=== PATIENT | male | born 1950 | race Asian ===

== ENCOUNTER 2016-11-21 07:50 | Inpatient (IN) | payer OTHER ==
[2016-11-21] MEDS ORDERED: ONDANSETRON 4 MG/2 ML VIAL IVP ONE (08:47)
[2016-11-21] MEDS ORDERED: HYDROmorphONE/DILAUDID 1 MG/ML SYR IVP ONE (08:47)
--- NOTE | 2016-11-21 08:47 | EDPHY ---
H & P Time Seen by Provider: 11/21/16 08:37 HPI/ROS: CHIEF COMPLAINT: Abdominal pain HISTORY OF PRESENT ILLNESS: 65 year old male with history of non-Hodgkin lymphoma and prior small bowel obstruction with a chief complaint of abdominal pain. The abdominal discomfort began as bloating, but yesterday he developed sharp pains throughout his abdomen. The pain is moderate and generalized. Associated with nausea, but no vomiting. He states he was able to eat and drink yesterday, and his last bowel movement was yesterday morning. He denies fever, chills, chest pain, shortness of breath, or other associated symptoms. REVIEW OF SYSTEMS: Constitutional: No fever, no chills Eyes: No visual changes ENT: No sore throat Respiratory: No cough, no shortness of breath Cardiac: No chest pain Genitourinary: No hematuria, no dysuria Musculoskeletal: No leg pain or swelling Skin: No rash Neurological: No headache, no numbness, no weakness Psychiatric: No depression Past Medical/Surgical History: 1. History of non-Hodgkin lymphoma 2. Hypertension 3. History of prostate cancer 4. Small bowel obstruction / resection 5. History of atrial fibrillation 6. Small bowel ulcer with perforation Social History: at bedside. Oncologist: Dr. Vazquez. GI: Dr. Hearn. Smoking Status: Never smoked Physical Exam: General Appearance: Alert, pleasant Eyes: Pupils equal and round, no conjunctival pallor or injection ENT, Mouth: Mucous membranes moist Neck: Normal inspection Respiratory: Lungs are clear to auscultation Cardiovascular: Regular rate and rhythm Gastrointestinal: Distended, suprapubic and right lower quadrant tenderness, decreased bowel sounds Neurological: A&O, nonfocal, normal gait Skin: Warm and dry, no rash Extremities: Nontender, no pedal edema Psychiatric: Mood and affect normal Constitutional: Initial Vital Signs Temperature (C) 37.9 C 11/21/16 07:59 Heart Rate 87 11/21/16 07:59 Respiratory Rate 18 11/21/16 07:59 Blood Pressure 139/94 H 11/21/16 07:59 O2 Sat (%) 98 11/21/16 07:59 O2 Delivery Mode Room Air Allergies/Adverse Reactions: Penicillins Allergy (Severe, Verified 11/21/16 07:57) Swelling/neck,face,throat Home Medications: Medication Instructions Recorded Enalapril Maleate [Vasotec 20 MG 40 mg PO HS 10/21/15 (*)] Hydrochlorothiazide [HCTZ (*)] 12.5 mg PO DAILY 10/21/15 Colchicine [Colchicine (*)] 0.6 mg PO DAILY PRN #0 ea 01/03/16 Diltiazem Xr [Dilacor Xr] 240 mg PO DAILY #0 cap 01/03/16 Melatonin [Melatonin 3 MG (*)] 6 mg PO HS PRN #0 tab 01/03/16 Metoprolol Tartrate [Lopressor 25 25 mg PO BID #0 tab 01/03/16 mg (*)] Aspirin [Aspirin 325 mg (*)] 325 mg PO HS 11/21/16 Cetirizine [ZyrTEC 10 mg (*)] 10 mg PO HS PRN 11/21/16 Omeprazole [Prilosec 20 mg] 20 mg PO DAILY 11/21/16 Propafenone HCl Sr [Rythmol Sr 225 mg PO DAILY PRN 11/21/16 225mg (*)] Medical Decision Making - Diagnostics Imaging Results: Imaging Impressions Abdomen CT 11/21/16 08:48 Impression: 1. Acute appendicitis, associated with an adjacent inflamed short segment of ileum 2. Stable pancreatic head cystic lesion, likely a peripheral duct IMPT. Consider follow-up CT in one year. Results called and discussed with HIRAL FERRERA, at 11/21/2016 10:01 General information for patients regarding this examination can be found at [email or web address]. If you have questions or comments about this report, please contact me at (hospital) or [phone] (cell). Imaging: Discussed imaging studies w/ process helper Radiologist ED Course/Re-evaluation: Clinical presentation concerning for acute bowel obstruction and possibly for acute appendicitis, given right lower quadrant tenderness. CT scan of the abdomen pelvis with IV contrast ordered. Administered 4mg IV Zofran and 0.5mg IV Dilaudid for symptom relief. 10:[address] Araujo, radiologist. CT shows appendicitis. Administered Levofloxacin and Flagyl due to severe penicillin allergy. Plan to admit for appendicitis. 10:[address] Frost's PA. Dr. Moser accepts admission. 10:23 Reassessed patient. Discussed plan for admission. Informed him and his of pancreatic cyst seen on CT. They are now aware of this, and will plan for follow-up CT in one year. Differential Diagnosis: Differential diagnosis includes though it is not limited to appendicitis, cholecystitis, diverticulitis, pyelonephritis, bowel perforation, small bowel obstruction. - Data Points Laboratory Results: Laboratory Results 11/21/16 08:39 11/21/16 08:39 11/21/16 11/21/16 08:39 08:39 WBC 14.11 10^3/uL H 10^3/uL (3.80-9.50) RBC 5.87 10^6/uL 10^6/uL (4.40-6.38) Hgb 16.7 g/dL g/dL (13.7-17.5) Hct 50.1 % % (40.0-51.0) MCV 85.3 fL fL (81.5-99.8) MCH 28.4 pg pg (27.9-34.1) MCHC 33.3 g/dL g/dL (32.4-36.7) RDW 13.5 % % (11.5-15.2) Plt Count 268 10^3/uL 10^3/uL (150-400) MPV 9.2 fL fL (8.7-11.7) Neut % (Auto) 85.7 % H % (39.3-74.2) Lymph % (Auto) 7.3 % L % (15.0-45.0) [place] % (Auto) 5.5 % % (4.5-13.0) Eos % (Auto) 0.6 % % (0.6-7.6) Baso % (Auto) 0.3 % % (0.3-1.7) Nucleat RBC Rel Count 0.0 % % (0.0-0.2) Absolute Neuts (auto) 12.09 10^3/uL H 10^3/uL (1.70-6.50) Absolute Lymphs (auto) 1.03 10^3/uL 10^3/uL (1.00-3.00) Absolute Monos (auto) 0.78 10^3/uL 10^3/uL (0.30-0.80) Absolute Eos (auto) 0.08 10^3/uL 10^3/uL (0.03-0.40) Absolute Basos (auto) 0.04 10^3/uL 10^3/uL (0.02-0.10) Absolute Nucleated RBC 0.00 10^3/uL 10^3/uL (0-0.01) Immature Gran % 0.6 % % (0.0-1.1) Immature Gran # 0.09 10^3/uL 10^3/uL (0.00-0.10) Sodium 144 mEq/L mEq/L (134-144) Potassium 4.1 mEq/L mEq/L (3.5-5.2) Chloride 106 mEq/L mEq/L (97-110) Carbon Dioxide 22 mEq/l mEq/l (22-31) Anion Gap 16 mEq/L mEq/L (8-16) BUN 20 mg/dL mg/dL (7-23) Creatinine 0.9 mg/dL mg/dL (0.7-1.3) Estimated GFR > 60 Glucose 108 mg/dL H mg/dL (70-100) Calcium 9.7 mg/dL mg/dL (8.5-10.4) Total Bilirubin 1.2 mg/dL mg/dL (0.1-1.4) Conjugated Bilirubin 0.3 mg/dL mg/dL (0.0-0.5) Unconjugated Bilirubin 0.9 mg/dL mg/dL (0.0-1.1) AST 38 IU/L IU/L (17-59) ALT 50 IU/L IU/L (21-72) Alkaline Phosphatase 66 IU/L IU/L (38-126) Total Protein 6.9 g/dL g/dL (6.3-8.2) Albumin 4.5 g/dL g/dL (3.5-5.0) Lipase 135.0 IU/L IU/L (23-300) Medications Given: Discontinued Medications Hydromorphone HCl (Dilaudid) 0.5 mg IVP EDNOW ONE Stop: 11/21/16 08:48 Last Admin: 11/21/16 09:00 Dose: 0.5 mg Sodium Chloride (Ns) 1,000 mls @ 0 mls/hr IV ONCE ONE; Wide Open PRN Reason: Protocol Stop: 11/21/16 08:49 Last Admin: 11/21/16 08:50 Dose: 1,000 mls Levofloxacin/Dextrose (Levaquin 750 Mg (Premix)) 150 mls @ 100 mls/hr IV EDNOW ONE PRN Reason: Protocol Stop: 11/21/16 11:43 Last Admin: 11/21/16 10:50 Dose: 150 mls Metronidazole/Sodium Chloride (Flagyl 500 Mg (Premix)) 100 mls @ 100 mls/hr IV EDNOW ONE PRN Reason: Protocol Stop: 11/21/16 11:14 Last Admin: 11/21/16 11:44 Dose: 100 mls Lactated Ringer's (Lr) 1,000 mls @ 0 mls/hr IV ONCE ONE PRN Reason: Per Protocol Stop: 11/21/16 13:00 Last Admin: 11/21/16 13:18 Dose: 1,000 mls Ondansetron HCl (Zofran) 4 mg IVP EDNOW ONE Stop: 11/21/16 08:48 Last Admin: 11/21/16 09:00 Dose: 4 mg Departure - Departure Disposition: [facility] Acute Clinical Impression: Acute appendicitis Qualifiers: Acute appendicitis type: with localized peritonitis Qualified Code(s): K35.3 - Acute appendicitis with localized peritonitis Condition: Good Report Scribed for: Hrial Ferrera Report Scribed by: Aubree Brown Date of Report: 11/21/16 Time of Report: 09:38 Physician Review and Approval Statement: 11/21/16 09:38 Portions of this note were transcribed by a nuclear medical technologist. I personally performed a history, physical exam, medical decision making, and confirmed accuracy of information the transcribed note.
[2016-11-21] MEDS ORDERED: NS 1,000 ML IV ONE (08:48)
[2016-11-21 08:53] LABS: % IMMATURE GRANULYOCYTES 0.6 % (0.0-1.1); ABSOLUTE IMMATURE GRANULOCYTES 0.09 10^3/uL (0.00-0.10); ADD DIFF? NO; ADD MORPH? NO; ADD SCAN? NO; ATYPICAL LYMPHOCYTE FLAG 0 (0-99); FRAGMENT RBC FLAG 0 (0-99); HEMATOCRIT 50.1 % (40.0-51.0); HEMOGLOBIN 16.7 g/dL (13.7-17.5); LEFT SHIFT FLG 10 (0-99); LIPEMIA HEMOLYSIS FLAG 80 (0-99); MEAN CELL HEMOGLOBIN 28.4 pg (27.9-34.1); MEAN CELL HEMOGLOBIN CONCENTR. 33.3 g/dL (32.4-36.7); MEAN CELL VOLUME 85.3 fL (81.5-99.8); MEAN PLATELET VOLUME 9.2 fL (8.7-11.7); PLATELET CLUMPS FLAG 20 (0-99); PLATELET COUNT 268 10^3/uL (150-400); RED BLOOD CELL COUNT 5.87 10^6/uL (4.40-6.38); RED CELL DISTRIBUTION WIDTH 13.5 % (11.5-15.2)
[2016-11-21 09:13] LABS: ALANINE AMINOTRANSFERASE 50 IU/L (21-72); ALBUMIN 4.5 g/dL (3.5-5.0); ALKALINE PHOSPHATASE 66 IU/L (38-126); ANION GAP 16 mEq/L (8-16); ASPARTATE AMINOTRANSFERASE 38 IU/L (17-59); BILIRUBIN,TOTAL 1.2 mg/dL (0.1-1.4); BILIRUBIN-CONJUGATED 0.3 mg/dL (0.0-0.5); BILIRUBIN-UNCONJUGATED 0.9 mg/dL (0.0-1.1); CALCIUM 9.7 mg/dL (8.5-10.4); CARBON DIOXIDE 22 mEq/l (22-31); CHLORIDE 106 mEq/L (97-110); CREATININE 0.9 mg/dL (0.7-1.3); GLOMERULAR FILTRATION RATE > 60; GLUCOSE 108 mg/dL (70-100); POTASSIUM 4.1 mEq/L (3.5-5.2); SODIUM 144 mEq/L (134-144); TOTAL PROTEIN 6.9 g/dL (6.3-8.2)
[2016-11-21] MEDS ORDERED: IOPAMIDOL (ISOVUE-300) 100 ML BTL ONE (09:28)
[2016-11-21] MEDS ORDERED: HYDROmorphONE/DILAUDID 1 MG/ML SYR IVP PRN ×2 (11:04→16:20)
--- NOTE | 2016-11-21 11:34 | GHP ---
[f rep st] PREOP HISTORY AND PHYSICAL DATE OF ADMISSION: 11/21/2016 CHIEF COMPLAINT: Abdominal pain. HISTORY OF PRESENT ILLNESS: The patient is a 65-year-old man who developed abdominal pain 3 days ag o. It started out as diffuse discomfort and over the past 3 days, has become more localized in the right lower quadrant. The pain is constant. He also developed nausea this morning. No fevers. Of note, he has had a history of small bowel obstructions, requiring small bowel resections, most rece ntly, in December 2015. He reports decreased appetite and the last time he ate was last night. He vela d a small sip of water with his morning medications this morning. He had a CT scan performed while in the emergency room, which showed evidence of acute appendicitis associated with adjacent inflamed short segment of ilium. No evidence of recurrent small bowel obstruction. PAST MEDICAL HISTORY: Non-Hodgkin lymphoma, hypertension, prostate cancer, atrial fibrillation, gou t. PAST SURGICAL HISTORY: Small bowel resection x3, chest surgery, port placement, prostatectomy, righ t elbow surgery, varicocele. ALLERGIES: Penicillin. SOCIAL HISTORY: He is . He is a former smoker. He reports drinking half a bottle of wine 3 times a week. He uses 2 drops of CBD oil orally for chronic inflammation from gout. REVIEW OF SYSTEMS: A 10-point review of systems is negative aside from HPI. PHYSICAL EXAM: GENERAL: A very pleasant, well-developed, well-nourished man, in no acute distress, accompanied by . HEENT: Normocephalic, atraumatic. No hearing deficits. Pupils equal and ro und. No scleral icterus. Mucous membranes moist. NECK: Trachea midline. RESPIRATORY: Clear to auscultation bilaterally. No increased work of breathing. CARDIOVASCULAR: Regular rate and rhythm . ABDOMEN: Hypoactive bowel sounds throughout. Distended, but soft. No rebound or guarding. Ten derness to deep palpation in right lower quadrant. Previous surgical scars well healed. PSYCH: Mo od and affect normal. Very cheerful and making jokes. NEURO: Grossly intact. VITAL SIGNS: Stabl e in ER. RESULTS REVIEWED: Presented with leukocytosis. H and H within normal limits. Electrolytes within normal limits, as well as liver function tests and lipase. IMPRESSION AND PLAN: The patient is a 65-year-old man with a history of recurrent small bowel obstr uctions, now presenting with evidence of acute appendicitis. We discussed laparoscopic, possible op en appendectomy. We discussed risks of surgery including, but not limited to, heart attack, stroke, blood clots, or . We discussed risk of infection, bleeding, damage to surrounding structures, need to convert to an open procedure, or need for additional procedures. He understands the risks and would like to proceed. He has not had anything to eat since last night, and had a small sip of water with morning medications. He is not on any blood thinners. He will receive Invanz on-call to the operating room. Informed consent was signed and in his chart. He will additionally be seen by Dr. Hair Moser. He and his had their questions answered to their satisfaction. /[id number]/MODL
[2016-11-21] MEDS ORDERED: HEPARIN 1000 UNIT/1 ML MDV ONE (12:51)
[2016-11-21] MEDS ORDERED: ceFAZolin 1 GM/5 ML SYR ONE (12:51)
[2016-11-21] MEDS ORDERED: BUPIVACAINE 0.5% 30 ML SDV ONE (12:51)
[2016-11-21] MEDS ORDERED: LR 1,000 ML IV ONE (12:59)
--- NOTE | 2016-11-21 13:22 | PDHPUP ---
History & Physical Update H&P update statement: This history and physical update is based on an assessment of the patient which was completed after admission or registration (within 24 hours), but prior to the surgery/procedure. H&P update: H&P reviewed & patient examined, no change in patient's condition since H&P completed
[2016-11-21] MEDS ORDERED: MIDAZOLAM 2 MG/2 ML VIAL IVP ONE (13:35)
--- NOTE | 2016-11-21 13:39 | PDANEPAE ---
ANE History of Present Illness 65 year old with appendicytis ANE Past Medical History - Cardiovascular History Hx Hypertension: Yes Hx Arrhythmias: Yes Hx Chest Pain: No Hx Coronary Artery / Peripheral Vascular Disease: No Hx CHF / Valvular Disease: No Hx Palpitations: No Cardiovascular History Comment: AFIB DIAGNOSED 10/2015 OFF ELOQUIST - Pulmonary History Hx Oxygen in Use at Home: No Hx Sleep Apnea: No Pulmonary History Comment: SLEEP APNEA-USES CPAP - Neurologic History Hx Cerebrovascular Accident: No Hx Seizures: No Hx Dementia: No - Endocrine History Hx Diabetes: No - Renal History Hx Renal Disorders: No - Liver History Hx Hepatic Disorders: No - Neurological & Psychiatric Hx Hx Neurological and Psychiatric Disorders: Yes Neurological / Psychiatric History Comment: DEPRESSION,NO MEDS - Cancer History Hx Cancer: Yes Cancer History Comment: PROSTATE, LYMPHOMA - Congenital Disorder History Hx Congenital Disorders: No - GI History Hx Gastrointestinal Disorders: Yes Gastrointestinal History Comment: GERD - Other Health History Other Health History: GOUT - Chronic Pain History Chronic Pain: No - Surgical History Prior Surgeries: SBO/COLECTOMY, RE-DO COLECTOMY, PROSTATECTOMY-CA, CHEST BIOPSY, LYMPHOMA, RIGHT ELBOW ANE Review of Systems - Exercise capacity METS (RN): 5 METS ANE Patient History - Allergies Allergies/Adverse Reactions: Penicillins Allergy (Severe, Verified 11/21/16 07:57) Swelling/neck,face,throat - Home Medications Home Medications: Enalapril Maleate [Vasotec 20 MG (*)] 40 mg PO HS 10/21/15 [Last Taken 11/20/16] Hydrochlorothiazide [HCTZ (*)] 12.5 mg PO DAILY 10/21/15 [Last Taken 11/21/16] Aspirin [Aspirin 325 mg (*)] 325 mg PO HS 11/21/16 [Last Taken 11/20/16] Cetirizine [ZyrTEC 10 mg (*)] 10 mg PO HS PRN 11/21/16 [Last Taken 11/16/16] Omeprazole [Prilosec 20 mg] 20 mg PO DAILY 11/21/16 [Last Taken 11/21/16] Propafenone HCl Sr [Rythmol Sr 225mg (*)] 225 mg PO DAILY PRN 11/21/16 [Last Taken 11/21/16] - NPO status NPO Since - Liquids (Date): 11/21/16 NPO Since - Liquids (Time): 07:30 NPO Since - Solids (Date): 11/20/16 - Smoking Hx Smoking Status: Never smoked - Family Anes Hx Family Hx Anesthesia Complications: NONE ANE Labs/Vital Signs - Labs Result Diagrams: 11/21/16 08:39 11/21/16 08:39 - Vital Signs Blood Pressure: 127/80 Heart Rate: 80 Respiratory Rate: 14 O2 Sat (%): 94 Height: 175.26 cm Weight: 77.111 kg ANE Physical Exam - Airway Neck exam: FROM Mallampati Score: Class 2 Mouth exam: normal dental/mouth exam - Pulmonary Pulmonary: no respiratory distress, clear to auscultation - Cardiovascular Cardiovascular: regular rate and rhythym - ASA Status ASA Status: II ANE Anesthesia Plan Anesthesia Plan: general endotracheal anesthesia
[2016-11-21] MEDS ORDERED: fentaNYL 100 MCG/2 ML INJ ONE ×4 (13:51→16:04)
[2016-11-21] MEDS ORDERED: DEXAMETHASONE 4 MG/ML VIAL ONE (13:51)
[2016-11-21] MEDS ORDERED: LIDOCAINE 2% 5 ML SDV ONE (13:51)
[2016-11-21] MEDS ORDERED: PROPOFOL 200 MG/20 ML VIAL ONE (13:51)
[2016-11-21] MEDS ORDERED: ROCURONIUM 50 MG/5 ML VIAL ONE (13:53)
[2016-11-21] MEDS ORDERED: PROMETHAZINE HCL 25 MG/ML INJ IVP PRN (15:26)
[2016-11-21] MEDS ORDERED: fentaNYL 100 MCG/2 ML INJ IVP PRN (15:26)
[2016-11-21] MEDS ORDERED: ONDANSETRON 4 MG/2 ML VIAL IVP PRN ×2 (15:26→16:20)
[2016-11-21] MEDS ORDERED: NALOXONE HCL 0.4 MG/ML INJ IVP PRN (15:26)
--- NOTE | 2016-11-21 15:27 | POSTANESTH ---
Post Anesthetic Evaluation Cardiovascular Status: Normal, Stable Respiratory Status: Normal, Stable Level of Consciousness/Mental Status: Can Participate in Eval, Alert and Oriented Pain Control: Adequate, Prn Tx Ordered Nausea/Vomiting Control: Adequate, Prn Tx Ordered Complications Possibly Related to Anesthesia: None Noted
--- NOTE | 2016-11-21 15:48 | CPEKG ---
Heart Rate: 97 RR Interval: 619 P-R Interval: 128 QRSD Interval: 108 QT Interval: 364 QTC Interval: 463 P [place]: 43 QRS [place]: 15 T Wave [place]: 26 EKG Severity - ABNORMAL ECG - EKG Impression: SINUS TACHYCARDIA EKG Impression: MULTIPLE ATRIAL PREMATURE COMPLEXES EKG Impression: INCOMPLETE RIGHT BUNDLE BRANCH BLOCK EKG Impression: CONSIDER INFERIOR INFARCT EKG Impression: SINUS RHYTHM HAS REPLACED ATRIAL FIBRILLATION NOTED ON PRIOR ECG (JAN 04) Electronically Signed By: Clarence Moreno 24-Nov-2016 15:52:25
--- NOTE | 2016-11-21 16:18 | POSTOPPROG ---
Post Op Note Date of Operation: 11/21/16 Surgeon: Hair Moser Anesthesiologist: WARM Anesthesia: GET(General Endotracheal) Pre-op Diagnosis: APPENDICITIS Post-op Diagnosis: PERFORATED APPE Indication: PAIN Procedure: LAP APPE AND DRAINAGE Findings: CHRONIC NECROTIC RETROCECAL, RETROPERITONEAL APPE Inf/Abcess present in the surg proc area at time of surgery?: Yes Depth: Organ Space EBL: Minimal Complications: 0 Specimen(s): APPENDIX
[2016-11-21] MEDS ORDERED: MELATONIN 3 MG TAB PO PRN (16:22)
[2016-11-21] MEDS ORDERED: PROPAFENONE HCL SR 225 MG CAP PO PRN (16:22)
[2016-11-21] MEDS ORDERED: CETIRIZINE 10 MG TAB PO PRN (16:22)
[2016-11-21] MEDS ORDERED: COLCHICINE 0.6 MG CAP/TAB PO PRN (16:22)
[2016-11-21] MEDS: KETOROLAC 15 MG/1 ML SDV IVP SCH (17:31)
[2016-11-21] MEDS: D5W 1/2 NS W/ 20 KCl/L 1,000 ML IV SCH (17:31)
[2016-11-21] MEDS: OXYCODONE/APAP 5/325 TAB PO PRN (19:36)
[2016-11-21] MEDS: ENALAPRIL MALEATE 20 MG TAB PO SCH (20:33)
[2016-11-21] MEDS: ASPIRIN 325 MG TAB PO SCH (20:34)
[2016-11-21] MEDS: METOPROLOL TARTRATE 25 MG TAB PO SCH (20:34)
[2016-11-22] MEDS: KETOROLAC 15 MG/1 ML SDV IVP SCH ×5 (00:05→23:39)
[2016-11-22] MEDS: D5W 1/2 NS W/ 20 KCl/L 1,000 ML IV SCH ×3 (03:44→23:43)
[2016-11-22] MEDS: OXYCODONE/APAP 5/325 TAB PO PRN (05:19)
[2016-11-22 05:31] LABS: % IMMATURE GRANULYOCYTES 0.8 % (0.0-1.1); ADD DIFF? NO; ADD MORPH? NO; ADD SCAN? NO; ATYPICAL LYMPHOCYTE FLAG 0 (0-99); FRAGMENT RBC FLAG 0 (0-99); HEMATOCRIT 40.6 % (40.0-51.0); HEMOGLOBIN 13.4 g/dL (13.7-17.5); LEFT SHIFT FLG 30 (0-99); LIPEMIA HEMOLYSIS FLAG 80 (0-99); MEAN CELL HEMOGLOBIN 28.7 pg (27.9-34.1); MEAN CELL VOLUME 86.9 fL (81.5-99.8); MEAN PLATELET VOLUME 9.4 fL (8.7-11.7); PLATELET CLUMPS FLAG 0 (0-99); PLATELET COUNT 226 10^3/uL (150-400); RED BLOOD CELL COUNT 4.67 10^6/uL (4.40-6.38); RED CELL DISTRIBUTION WIDTH 13.4 % (11.5-15.2)
[2016-11-22] MEDS ORDERED: HYDROmorphONE/DILAUDID 2 MG TAB PO PRN (09:22)
[2016-11-22] MEDS ORDERED: PROMETHAZINE HCL 25 MG/ML INJ IVP PRN (09:23)
--- NOTE | 2016-11-22 10:11 | SOAPPROG ---
SOAP Progress Note Assessment/Plan: Assessment: NAUSEA AND EMESIS THIS MORNING BUT FEELS GREAT NOW/ABDOMEN SOFT/WOUND OKAY/ MINIMAL SEROUS PANFILO DRAINAGE/HEMATOCRIT 41/AFEBRILE/POSITIVE FLATUS Plan: ADVANCE DIET/HOME IN THE A.M. 11/22/16 10:10 Objective: Vital Signs Temp Pulse Resp BP Pulse Ox 36.6 C 61 16 130/84 H 97 11/22/16 07:40 11/22/16 07:40 11/22/16 07:40 11/22/16 07:40 11/22/16 07:40 Laboratory Results 11/22/16 05:08 11/21/16 11/22/16 11/23/16 05:59 05:59 05:59 Intake Total 1550 Output Total 1650 Balance -100 ICD10 Worksheet Patient Problems: Problems Problem Status Onset Acute appendicitis Acute Abdominal pain Acute Atrial fibrillation Acute Peritonitis (acute) generalized Acute Sepsis Acute
[2016-11-22] MEDS: HYDROCHLOROTHIAZIDE 25 MG TAB PO SCH (10:12)
[2016-11-22] MEDS: DILTIAZEM XR 240 MG CAP PO SCH (10:12)
[2016-11-22] MEDS: PANTOPRAZOLE SODIUM 40 MG TAB PO SCH (10:12)
[2016-11-22] MEDS: METOPROLOL TARTRATE 25 MG TAB PO SCH ×2 (10:13→21:27)
[2016-11-22 20:24] VITALS: RESP 16
[2016-11-22] MEDS: ASPIRIN 325 MG TAB PO SCH (21:27)
[2016-11-22] MEDS: ENALAPRIL MALEATE 20 MG TAB PO SCH (21:27)
[2016-11-22] MEDS ORDERED: ZOLPIDEM TARTRATE 5 MG TAB PO PRN (22:21)
[2016-11-23] MEDS: KETOROLAC 15 MG/1 ML SDV IVP SCH (05:21)
[2016-11-23 08:01] VITALS: BP 134/93; TEMP 97.7; O2SAT 96
--- NOTE | 2016-11-23 08:06 | SOAPPROG ---
SOAP Progress Note Assessment/Plan: Assessment: NAUSEA AND EMESIS THIS MORNING BUT FEELS GREAT NOW/ABDOMEN SOFT/WOUND OKAY/ MINIMAL SEROUS PANFILO DRAINAGE/HEMATOCRIT 41/AFEBRILE/POSITIVE FLATUS Plan: ADVANCE DIET/HOME IN THE A.M. 11/22/16 10:10 11/23/16 08:05 DOING WELL/ WOUND OK/ AFEBRILE/ ABD SOFT/ EATING/ MINIMAL DRAINAGE/ HOME ON LEVOQUIN Objective: Vital Signs Temp Pulse Resp BP Pulse Ox 36.5 C 70 16 134/93 H 96 11/23/16 07:59 11/23/16 07:59 11/23/16 07:59 11/23/16 07:59 11/23/16 07:59 Laboratory Results 11/22/16 05:08 11/22/16 11/23/16 11/24/16 05:59 05:59 05:59 Intake Total 1550 2288 Output Total 1650 2245 Balance -100 43 ICD10 Worksheet Patient Problems: Problems Problem Status Onset Acute appendicitis Acute Abdominal pain Acute Atrial fibrillation Acute Peritonitis (acute) generalized Acute Sepsis Acute
[2016-11-23] MEDS: DILTIAZEM XR 240 MG CAP PO SCH (08:35)
[2016-11-23] MEDS: METOPROLOL TARTRATE 25 MG TAB PO SCH (08:36)
[2016-11-23] MEDS: PANTOPRAZOLE SODIUM 40 MG TAB PO SCH (08:36)
[2016-11-23] MEDS: HYDROCHLOROTHIAZIDE 25 MG TAB PO SCH (08:36)
[2016-11-23 08:39] VITALS: PULSE 75
== END 2016-11-23 11:43 | disposition home or self-care (01) | DRG 340 ==
LOC: F3E 16:39 → OBSVTOIN 11-23 10:30
PROVIDERS: ADMIT Surgery; ATTEND Surgery
PROC: 0DTJ4ZZ Resection of Appendix, Percutaneous Endoscopic Approach (ICD-10-PCS; principal; 2016-11-21 13:30)
DX: K35.3 Acute appendicitis with localized peritonitis (principal); I10 Essential (primary) hypertension; G47.30 Sleep apnea, unspecified; K21.9 Gastro-esophageal reflux disease without esophagitis; M10.9 Gout, unspecified; Z85.46 Personal history of malignant neoplasm of prostate; Z88.0 Allergy status to penicillin; Z85.72 Personal history of non-Hodgkin lymphomas
CPT/HCPCS: 96365; J1100; J1170; J1885; J1956; J2250; J2405; J2704; J3010; Q9967

== ENCOUNTER 2017-05-29 13:30 | Emergency (ER) | payer OTHER ==
[2017-05-29 13:44] VITALS: BP 166/102; PULSE 76; RESP 16; TEMP 97.9; O2SAT 95
--- NOTE | 2017-05-29 13:56 | EDPHY ---
H & P HPI/ROS: CHIEF COMPLAINT: Hiccups History by patient HISTORY OF PRESENT ILLNESS: 66-year-old man with a history of hypertension, atrial fibrillation and a remote history of leukemia presents complaining of 3 days of hiccups. Patient states that he began doing sit-ups for the 1st time 3 days ago, went to a golf show and then while he was at a constitution party the evening he began having hiccups. Subsequently they have been going on off including waking him up at night. They are not associated with any chest pain, shortness of breath, nausea vomiting or diaphoresis. There are not activity related. He has had some occasional heartburn. He is currently taking Prilosec. He had a similar episode of intractable hiccups when he was on chemotherapy many years ago for which he took Compazine with good results. He has tried holding his breath and other physical maneuvers without any relief. They seem to come and go at random. He is otherwise feeling well that says that he recently had a yearly checkup with his couture alterations dressmaker. REVIEW OF SYSTEMS: As in HPI, and all other systems reviewed and are negative Smoking Status: Never smoked Physical Exam: General Appearance: Alert, comfortable and well appearing, speaking full sentences with occasional hiccups. Head: normocephalic, atraumatic Eyes: Pupils equal and round, reactive to light, no pallor or injection. Mouth: Mucous membranes moist. Respiratory: Normal, effort, lungs are clear to auscultation. No wheezes, rales or rhonchi. Cardiovascular: Regular rate and rhythm. S1, S2, no murmurs, gallops or rubs appreciated Gastrointestinal: Abdomen is soft and nontender, no masses, bowel sounds normal. Back: No CVA tenderness, no bony tenderness Neurological: Awake, alert and oriented x 3, no pronator drift, normal gait, no pronator drift Skin: Warm and dry, no rashes. Musculoskeletal: No deformities or tenderness. Extremities: full range of motion, no edema, DP2+ bilat Psychiatric: Patient has normal affect, there is no agitation. Constitutional: Initial Vital Signs Temperature (C) 36.6 C 05/29/17 13:42 Heart Rate 76 05/29/17 13:42 Respiratory Rate 16 05/29/17 13:42 Blood Pressure 166/102 H 05/29/17 13:42 O2 Sat (%) 95 05/29/17 13:42 O2 Delivery Mode Room Air Allergies/Adverse Reactions: Penicillins Allergy (Severe, Verified 11/21/16 07:57) Swelling/neck,face,throat Home Medications: Medication Instructions Recorded Enalapril Maleate [Vasotec 20 MG 40 mg PO HS 10/21/15 (*)] Hydrochlorothiazide [HCTZ (*)] 12.5 mg PO DAILY 10/21/15 Colchicine [Colchicine (*)] 0.6 mg PO DAILY PRN #0 ea 01/03/16 Diltiazem Xr [Dilacor Xr] 240 mg PO DAILY #0 cap 01/03/16 Melatonin [Melatonin 3 MG (*)] 6 mg PO HS PRN #0 tab 01/03/16 Metoprolol Tartrate [Lopressor 25 25 mg PO BID #0 tab 01/03/16 mg (*)] Aspirin [Aspirin 325 mg (*)] 325 mg PO HS 11/21/16 Cetirizine [ZyrTEC 10 mg (*)] 10 mg PO HS PRN 11/21/16 Omeprazole [Prilosec 20 mg] 20 mg PO DAILY 11/21/16 Propafenone HCl Sr [Rythmol Sr 225 mg PO DAILY PRN 11/21/16 225mg (*)] HYDROmorphone HCL [Dilaudid 2 mg 2 mg PO Q3 PRN #14 tab 11/23/16 (*)] Ibuprofen [Motrin (*)] 600 mg PO Q6H #30 tab 11/23/16 Prochlorperazine Maleate 10 mg PO TID #6 tab 05/29/17 [Compazine 10mg (*)] MDM/Departure - [facility] ED Course/Re-evaluation: A 66-year-old man presents complaining of persistent intermittent hiccups for 2 days. Patient was initially hiccuping on arrival, but this resolved while we are talking. Patient denies any other associated symptoms. He states that Compazine his worked for him in the past. We did discuss how hiccups can be a sign of other underlying diseases including cardiac, however the patient has no other associated concerning symptoms. Patient is agreeable to course of Compazine. Patient states he will follow up with his couture alterations dressmaker and his primary care physician if the hiccups do not resolve with Compazine. - Depart Disposition: Home, Routine, Self-Care Clinical Impression: Hiccups Condition: Good Instructions: Hiccups (ED) Additional Instructions: You were seen by Dr. Page Henderson today. Try the Compazine once every 8 hr for the next 24-48 hours. If this does not resolve your symptoms please follow up with your primary care physician. If he develops additional symptoms such as chest pain, trouble breathing or other new concerns please return to the emerged department or see your doctor immediately. Return for any worsening or new concerns. Prescriptions: Prochlorperazine Maleate [Compazine 10mg (*)] 10 mg PO TID #6 tab Referrals: Clarence Vazquez MD [Primary Care Provider] - As per Instructions
== END 2017-05-29 14:02 | disposition home or self-care (01) ==
LOC: CED 13:30
DX: R06.6 Hiccough (principal); Z79.82 Long term (current) use of aspirin